=== PATIENT | male | born 1960 | race Two or more races ===

== ENCOUNTER 2025-08-24 06:15 | Day surgery (SDC) | payer OTHER ==
[2025-08-23 09:19] LABS: BASO % 0.5 % (0.1-1.2); EOS # 0.23 (0.04-0.54); EOS % 3.1 % (0.7-7.0); LYMPH # 1.84 (1.18-3.74); LYMPH % 24.5 % (19.3-53.1); MEAN PLATELET VOLUME 10.50 fl (9.4-12.4); MONO # 0.68 (0.24-0.82); MONO % 9.0 % (4.7-12.5); NEUT # 4.71 (1.56-6.13); NEUT % 62.6 % (34.0-71.1); RED CELL DISTRIBUTION WIDTH 13.8 % (11.6-14.4)
[2025-08-23 09:41] LABS: INR 1.01
[2025-08-23 09:42] LABS: URINE APPEARANCE Clear; URINE BILIRRUBIN Negative (NEGATIVE); URINE BLOOD Negative; URINE COLOR Yellow; URINE GLUCOSE Negative (NEGATIVE); URINE KETONE Negative (NEGATIVE); URINE LEUKOCYTE Negative; URINE NITRATE Negative; URINE PROTEIN Negative (NEGATIVE); URINE UROBILINOGEN 0.2 E.U./dl
[2025-08-23 09:46] LABS: URINE RBC 2.4 uL (0.0-20.8)
[2025-08-23 09:47] LABS: URINE BACTERIA 2.2 uL (0.0-1933); URINE CAST 0.00 uL (0.0-1.40); URINE EPITHELIAL CELLS 0.6 uL (0.0-38.8); URINE WBC 1.6 uL (0.0-23.2)
[2025-08-23 09:58] LABS: ALT/SGPT 40.0 U/L (12-78); AST/SGOT 17.0 U/L (15-37); BILIRUBIN TOTAL 0.41 mg/dL (0.3-1.2); BUN CREA RATIO 28.0 (7.0-25.0); CHOL HDL RATIO 3.3 (0-5.0); CREATININE SERUM 0.65 mg/dL (0.70-1.30); GFR 122.53; GLOBULINA 3.7 G/DL (2.4-3.5); GLUCOSE FASTING 100.0 mg/dL (65-100); HDL 48.0 mg/dl (40-60); LDL 88.0 mg/dl (0-130); OSMOLALITY SERUM 285.0 MOSM/KG (275-295); VLDL 19.0 (0-39)
[2025-08-23 10:00] VITALS: BP 153/80
[~2025-08-24] VITALS: Ht 180.3 cm; Wt 97.1 kg
[~2025-08-24 06:15] MED LIST: ATORVASTATIN CA10 MG; LEVOTHYROXINE25 MCG
[2025-08-24] MEDS ORDERED: CEFAZOLIN SODIUM 1,000 MG VIAL ONE (06:36)
[2025-08-24] MEDS ORDERED: BUPIVACAINE HCL/MPF 0.5% 30ML VIAL ONE (07:49)
[2025-08-24] MEDS ORDERED: LIDOCAINE HCL 1%/EPINEPHRINE 20ML VIAL IJ ONE (07:55)
[2025-08-24] MEDS ORDERED: hydrALAZINE HCL 20 MG VIAL ONE (09:10)
[2025-08-24] MEDS ORDERED: POVIDONE-IODINE 118 ML BOTT TOP ONE (09:19)
[2025-08-24] MEDS ORDERED: SUGAMMADEX SODIUM 200 MG/2 ML VIAL IV ONE (09:26)
[2025-08-24] MEDS ORDERED: ALEVE220 M1 PO (11:48)
[2025-08-24] MEDS ORDERED: PERCOCET 5-3251 EACH PO (11:48)
[2025-08-24] MEDS ORDERED: DUI500 PO (11:48)
== END 2025-08-24 13:15 | disposition home or self-care (01) ==
LOC: CIR.AMB 06:15
PROVIDERS: ATTEND Orthopaedic Surgery
DX: S52.532A Colles' fracture of left radius, initial encounter for closed fracture (principal); S52.692A Other fracture of lower end of left ulna, initial encounter for closed fracture; S52.592A Other fractures of lower end of left radius, initial encounter for closed fracture
CPT/HCPCS: 20902; 25609; 25652; L8699